=== PATIENT | male | born 1980 | race Caucasian/White ===

== ENCOUNTER 2019-09-22 18:05 | Emergency (ER) | payer MEDICAID ==
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
[2019-09-22] MEDS ORDERED: DEXAMETHASONE 10 MG/ML VIAL PO STA (19:00)
[2019-09-22] MEDS ORDERED: CHERRY SYRUP 10 ML UDC PO ONE (19:00)
--- NOTE | 2019-09-22 19:47 | XRAY Report ---
Reason: pain, ecchymosis, edema, finger numbness Procedure Date: 09/22/2019 Accession Number: [id number] / [id number] Procedure: XR - Humerus LT CPT Code: Final Report FULL RESULT: EXAM: LEFT HUMERUS RADIOGRAPHY EXAM DATE: 09/22/2019 06:59 PM. CLINICAL HISTORY: Pain, ecchymosis, edema, finger numbness. COMPARISON: None. TECHNIQUE: 2 views. FINDINGS: Bones: Normal. No fractures or bone lesions. Joints: Normal. No effusions or subluxations in the visualized shoulder or elbow joints. Soft Tissues: Unremarkable. IMPRESSION: Normal humerus radiography. [facility]
[2019-09-22 20:09] VITALS: BP 148/80
== END 2019-09-22 20:08 | disposition home or self-care (01) ==
LOC: ED 18:05
DX: S40.022A Contusion of left upper arm, initial encounter (principal); S01.01XD Laceration without foreign body of scalp, subsequent encounter; Y00.XXXA Assault by blunt object, initial encounter
CPT/HCPCS: 73060; 99281; 99283; A9270